=== PATIENT | female | born 1965 | race Caucasian/White ===

== ENCOUNTER 2019-06-06 09:54 | Outpatient (CLI) | payer BC | END 2019-06-06 09:55 | disposition critical access hospital (66) | LOC: EMS 09:54 | PROVIDERS: ATTEND Surgery | DX: M54.5 Low back pain (principal); R10.31 Right lower quadrant pain; R19.7 Diarrhea, unspecified; R11.0 Nausea | CPT/HCPCS: A0425; A0427 ==

== ENCOUNTER 2019-06-06 10:08 | Emergency (ER) | payer BC ==
[2019-06-06] MEDS ORDERED: ONDANSETRON 4 MG/2 ML VIAL IVP STA ×2 (10:19→11:08)
[2019-06-06] MEDS ORDERED: SODIUM CHLORIDE 0.9% 1,000 ML IV STA (10:19)
[2019-06-06] MEDS ORDERED: MORPHINE 2 MG/ML CARPUJECT IVP STA (10:19)
--- NOTE | 2019-06-06 10:19 | ED Physician Documentation ---
History of Present Illness - Stated complaint Stated Complaint: FLANK PX - Chief complaint Chief Complaint: Abd Pain - Additonal information Additional information: This is a 53-year-old female with a history of CLL status post chemotherapy, reportedly currently in remission with only baseline mild neutropenia, who presents with sudden onset of right flank and lower abdominal pain. Patient states she woke up this morning and had some dysuria and hesitancy, and then she suddenly began getting pain in her back right flank radiated down towards her lower abdomen. She has not specifically noted blood in her urine. She was told the past she had a kidney stone in her left kidney, but she is never had symptoms from a kidney stone before. She does feel nauseated. No fever. Review of Systems Constitutional: denies: Fever Ears: denies: Ear pain Nose: denies: Rhinorrhea / runny nose Cardiac: denies: Chest pain / pressure Respiratory: denies: Dyspnea GI: reports: Abdominal Pain : denies: Hematuria Skin: denies: Rash Neurologic: denies: Generalized weakness Immunocompromised: reports: Other (Hx CLL) PD PAST MEDICAL HISTORY - Past Medical History Other Past Medical History: CLL - Past Surgical History /[employer]: Hysterectomy - Present Medications Home Medications: Ambulatory Orders Medication Instructions Recorded Confirmed Ondansetron Odt [Zofran] 4 mg TL Q6H PRN #10 tablet 06/06/19 Oxycodone HCl/Acetaminophen 1 - 2 each PO Q6H PRN #10 tablet 06/06/19 [Percocet 5-325 mg Tablet] - Allergies Allergies/Adverse Reactions: Allergies Allergy/AdvReac Type Severity Reaction Status Date / Time No Known Drug Allergies Allergy Verified 06/06/19 10:17 - Living Situation Living Arrangement: reports: At home PD ED PE NORMAL - General General: Other (Awake, alert, highly uncomfortable, writhing in bed.) - HEENT HEENT: Atraumatic - Cardiac Cardiac: RRR - Respiratory Respiratory: No respiratory distress, Clear bilaterally - Abdomen Abdomen: Other (No specific pain with palpation, patient is tensing her abdomen from the discomfort which She states is unaffected by palpation) - Extremities Extremities: No deformity - Neuro Neuro: Alert and oriented X 3 Results - Vitals Vitals: Oxygen O2 Source Room air - Labs Labs: Laboratory Tests 06/06/19 06/06/19 06/06/19 10:36 10:36 13:22 WBC 5.1 RBC 4.45 Hgb 14.0 Hct 39.8 MCV 89.4 MCH 31.5 H MCHC 35.2 RDW 12.2 Plt Count 213 MPV 10.0 Neut # (Auto) 3.0 Lymph # (Auto) 1.5 [place] # (Auto) 0.5 Eos # (Auto) 0.1 Baso # (Auto) 0.0 Absolute Nucleated RBC 0.00 Nucleated RBC % 0.0 Sodium 141 Potassium 3.7 Chloride 110 Carbon Dioxide 20 L Anion Gap 11.0 BUN 16 Creatinine 0.8 Estimated GFR (MDRD) 75 L Glucose 127 H Calcium 8.9 Total Bilirubin 1.0 AST 23 ALT 18 Alkaline Phosphatase 39 L Total Protein 6.3 L Albumin 4.3 Globulin 2.0 L Albumin/Globulin Ratio 2.2 Lipase 52 H Urine Color YELLOW Urine Clarity CLEAR Urine pH 7.0 Ur Specific [place] <=1.005 Urine Protein NEGATIVE Urine Glucose (UA) NEGATIVE Urine Ketones NEGATIVE Urine Occult Blood LARGE H Urine Nitrite NEGATIVE Urine Bilirubin NEGATIVE Urine Urobilinogen 0.2 (NORMAL) Ur Leukocyte Esterase NEGATIVE Urine RBC 11-25 H Urine WBC 4-5 Ur Squamous Epith Cells RARE Squamous Urine Bacteria None Seen Ur Microscopic Review INDICATED Urine Culture Comments NOT INDICATED - Rads (name of study) Abd/pelvis CT Radiology: Other (Bulky lymphadenoapthy, consistent with lymphoma. On my read there is a ~4mm stone in the R UVJ. No signficiant hydro seen) PD MEDICAL DECISION MAKING - ED course Complexity details: considered differential (Nephrolithiasis, UTI, pyelo, appendicitis, obstruction, diverticulitis, torsion) ED course: Pt is very uncomfortable on arrival and requires several doses of pain medications. Labs are unrevealing, other than urine shows RBCs consistent with kidney stone, a few WBC but not consistent with infection. CT shows a stone in the right UVJ. On repeat exam pt has no pain whatsoever, and states she feels back to normal. I discussed that she appears to have a kidney stone, and her CT also demonstrated her known lymphadenopathy. Given her pain is very well controlled, she has a benign abdomen, and she is tolerating Po without issue, she appears appropropriate for a trial of outpt care. I prescribed pain medications with instructions on use and safety. I also discussed return precuations for worsening or new concerning symptoms. I also recommended that she follow with her PCP and oncologist closely to compare her CT with previous studies to chest for change/new issues. She agrees and was discharged home in good condition. Departure - Departure Disposition: 01 Home, Self Care Clinical Impression: Renal colic on right side Condition: Good Instructions: ED Stone Renal W Colic Follow-Up: Your,Oncologist and PCP [Other] Prescriptions: Ondansetron Odt [Zofran] 4 mg TL Q6H PRN #10 tablet PRN Reason: Nausea / Vomiting Oxycodone HCl/Acetaminophen [Percocet 5-325 mg Tablet] 1 - 2 each PO Q6H PRN #10 tablet PRN Reason: pain Comments: You were seen today for abdominal pain. It looks like you had a stone at the junction of your bladder and your ureter on the right side, which may have passed. If you do develop recurrent pain or nausea you may take the pain medications and nausea medications. Please also take ibuprofen 600 mg if needed. Please review your CT scan with your oncologist to compare, as there are enlarged lymph nodes and a couple spots on the liver that should be compared to previous studies. If you develop fever or pain that is not improving with the medications given, return to an emergency department. Discharge Date/Time: 06/06/19 14:20
[2019-06-06 10:46] LABS: BASOPHILS % (AUTO) 0.8 %; EOSINOPHILS # (AUTO) 0.1 10^3/uL (0.0-0.7); LYMPHOCYTES # (AUTO) 1.5 10^3/uL (1.5-3.5); LYMPHOCYTES % (AUTO) 28.3 %; MEAN CORPUSCULAR HEMOGLOBIN 31.5 pg (27.0-31.0); MEAN CORPUSCULAR HGB CONC 35.2 g/dL (32.0-36.0); MEAN CORPUSCULAR VOLUME 89.4 fL (81.0-99.0); MONOCYTES # (AUTO) 0.5 10^3/uL (0.0-1.0); MONOCYTES % (AUTO) 10.4 %; NEUTROPHILS % (AUTO) 59.1 %; PLT - PLATELET COUNT 213 10^3/uL (130-450); RED BLOOD COUNT 4.45 10^6/uL (4.20-5.40); RED CELL DISTRIBUTION WIDTH 12.2 % (12.0-15.0); WHITE BLOOD COUNT 5.1 x10^3/uL (4.8-10.8)
[2019-06-06] MEDS ORDERED: IOVERSOL 320 100 ML VIAL IVP ONE ×2 (10:58→12:09)
[2019-06-06 11:03] LABS: ALBUMIN 4.3 g/dL (3.2-5.5); ALBUMIN/GLOBULIN RATIO 2.2 (1.0-2.2); CALCIUM 8.9 mg/dL (8.5-10.3); CREATININE 0.8 mg/dL (0.4-1.0); TOTAL PROTEIN 6.3 g/dL (6.7-8.2)
[2019-06-06] MEDS ORDERED: KETOROLAC 30 MG/ML VIAL IVP STA (11:08)
[2019-06-06] MEDS ORDERED: ONDANSETRON 4 MG/2 ML VIAL ONE (11:15)
--- NOTE | 2019-06-06 12:36 | CT Report ---
Reason: Severe sudden R flank/abd pain. History CLL Procedure Date: 06/06/2019 Accession Number: [id number] / [id number] Procedure: CT - Abdomen/Pelvis W CPT Code: Final Report FULL RESULT: EXAM: CT ABDOMEN AND PELVIS EXAM DATE: 06/06/2019 11:55 AM. CLINICAL HISTORY: Severe sudden right flank/abdominal pain. History CLL. COMPARISONS: None. TECHNIQUE: Routine helical CT imaging was performed through the abdomen and pelvis. IV contrast: OPTI 320 100ML. Enteric contrast: No. Reconstructions: Coronal and sagittal. In accordance with CT protocol optimization, one or more of the following dose reduction techniques were utilized for this exam: automated exposure control, adjustment of mA and/or KV based on patient size, or use of iterative reconstructive technique. FINDINGS: Lung Bases: Unremarkable. Liver: There are bilateral hypodense hepatic lesions the largest of which measures 3.2 x 2.0 cm in the right lobe of the liver and demonstrates focal hyperdensity centrally, not characterized. Some of the lesions may be too small to characterize. Gallbladder/Bile Ducts: Unremarkable. Spleen: Normal. Pancreas: Normal. Adrenal Glands: Normal. Kidneys: Normal. No masses or hydronephrosis. Peritoneal Cavity/Bowel: Bulky lymphadenopathy is seen throughout the abdominal and pelvic retroperitoneum. There is no bowel obstruction. There is no free fluid or free air. The appendix is not seen, possibly due to lack of intra-abdominal fat planes. Pelvic Organs: The bladder appears unremarkable. Vasculature: No aneurysms or other significant abnormality. Bones: No significant abnormality. Other: None. IMPRESSION: Bulky abdominopelvic lymphadenopathy, most concerning for lymphoma. Hypodense hepatic lesions are not characterized on this examination. Comparison to prior imaging which is not available at the time of interpretation is potentially helpful. [facility]
[2019-06-06 13:39] LABS: BILIRUBIN,URINE NEGATIVE (NEGATIVE); GLUCOSE, URINE (UA) NEGATIVE (NEGATIVE); KETONES,URINE (UA) NEGATIVE (NEGATIVE); LEUKOCYTE ESTERASE, URINE NEGATIVE (NEGATIVE); NITRITE,URINE NEGATIVE (NEGATIVE); OCCULT BLOOD,URINE LARGE (NEGATIVE); PROTEIN,URINE NEGATIVE (NEGATIVE); UROBILINOGEN,URINE 0.2 (NORMAL) E.U./dL (NORMAL)
[2019-06-06 13:47] LABS: BACTERIA,URINE None Seen /HPF (None Seen); CLARITY,URINE CLEAR (CLEAR); SQUAMOUS EPITHELIAL CELL,UR RARE Squamous (<= Few)
[2019-06-06 14:04] VITALS: BP 118/72
== END 2019-06-06 14:20 | disposition home or self-care (01) ==
LOC: ED 10:08
DX: N20.2 Calculus of kidney with calculus of ureter (principal); R59.0 Localized enlarged lymph nodes; K76.9 Liver disease, unspecified
CPT/HCPCS: 36415; 74177; 80053; 81001; 83690; 85025; 96361; 96374; 96375; 99284; Q9967; 81003; 87086